=== PATIENT | female | born 1990 | race Two or more races ===

== ENCOUNTER 2021-02-17 01:58 | Inpatient (IN) | payer OTHER, SELFPAY ==
[2021-02-17] VITALS (55 sets, daily range): BP systolic 130–175; BP diastolic 73–113; PULSE 78–100; RESP 16; TEMP 35.8–36.8; BMI 35.9
[2021-02-17 03:03] LABS: Basophils % 0.5 %; Eosinophils # 0.1 10^3/uL (0.0-0.8); Eosinophils % 0.7 %; Hematocrit 33.2 % (37.0-47.0); Hemoglobin 9.9 g/dL (11.5-15.3); Lymphocytes # 1.8 10^3/uL (0.8-4.8); Lymphocytes % 24.7 %; Mean Corpuscular HGB Conc 29.8 g/dL (30.0-36.0); Mean Corpuscular Hemoglobin 21.8 pg (28.0-34.0); Monocytes # 0.7 10^3/uL (0.2-0.9); Monocytes % 9.6 %; Neutrophils # 4.73 10^3/uL (1.8-7.7); Neutrophils % 64.2 %; Nucleated Red Blood Cells % 0 %; Platelet Count 310 10^3/cmm (130-400); Red Blood Count 4.55 10^6/uL (4.1-5.3); Red Cell Distribution Width 15.9 % (12.1-15.1); White Blood Count 7.4 10^3/uL (4.0-10.0)
[2021-02-17] MEDS: miSOPROStol 100 mcg tablet 25 MCG VAGINAL ×3 (03:20→13:15)
[2021-02-17] MEDS: lactated ringers 1,000 ML 999 ML IV (11:57)
[2021-02-17] MEDS: hyDROXYzine 25 mg Capsule 50 MG PO (13:15)
[2021-02-17] MEDS: labetalol 5 mg/mL SDV 20mL 20 MG IVP (13:24)
[2021-02-17] MEDS: dextrose 5%-lactated ringers 1,000 ML 125 ML IV (18:27)
[2021-02-17] MEDS: labetalol 5 mg/mL SDV 20mL 40 MG IVP (18:28)
[2021-02-17 19:27] LABS: Basophils # 0.1 10^3/uL (0.0-0.1); Basophils % 0.5 %; Eosinophils % 0.2 %; Hematocrit 33.4 % (37.0-47.0); Lymphocytes # 1.5 10^3/uL (0.8-4.8); Lymphocytes % 15.9 %; Mean Corpuscular HGB Conc 29.9 g/dL (30.0-36.0); Mean Corpuscular Hemoglobin 21.6 pg (28.0-34.0); Mean Platelet Volume 11.3 fL (7.4-10.4); Monocytes # 0.7 10^3/uL (0.2-0.9); Monocytes % 7.6 %; Neutrophils # 7.01 10^3/uL (1.8-7.7); Neutrophils % 75.6 %; Nucleated Red Blood Cells % 0 %; Platelet Count 288 10^3/cmm (130-400); Red Blood Count 4.64 10^6/uL (4.1-5.3); Red Cell Distribution Width 15.9 % (12.1-15.1); White Blood Count 9.3 10^3/uL (4.0-10.0)
[2021-02-17 19:43] LABS: Protein Urine 3+ (Negative); Specific Gravity, Urine 1.015 (1.005-1.030); Urine Appearance SL Hazy (CLEAR); Urine Color Yellow (Yellow); pH Urine 6.5 (5-7)
[2021-02-17 19:44] LABS: Add Urine Culture? No; Add Urine Microscopic? YES; Bacteria Urine TRACE /hpf; Bilirubin Urine Neg (Negative); Blood Urine 2+ (Negative); Glucose Urine UA Norm (Normal); Ketones Urine Negative (Negative); Leukocyte Esterase Urine Negative (Negative); Nitrate Urine Negative (Negative); Squamous Epithelial Cell Urine 0-4 /hpf (0-5); Urobilinogen Urine Norm (Negative)
[2021-02-17 19:54] LABS: Alanine Aminotransferase < 5 U/L (0-33); Albumin Level 3.1 g/dL (3.5-5.2); Alkaline Phosphatase 207 IU/L (35-105); Anion Gap 16.3 (5-19); Aspartate Amino Transferase 16 U/L (0-32); Blood Urea Nitrogen 7 mg/dL (6-20); Calcium 8.3 mg/dL (8.5-10.5); Carbon Dioxide 22 mmol/L (22-29); Chloride 103 mmol/L (98-107); Globulin 2.9 g/dL (1.3-4.6); Glomerular Filtration Rate 187.4 mL/min (90-130); Glucose 76 mg/dL (65-115); Osmolality Calculated 281 mOsm/kg (285-295); Potassium 4.3 mmol/L (3.5-5.1); Sodium 137 mmol/L (136-145); Total Bilirubin 0.2 mg/dL (0.15-1.2); Uric Acid 4.7 mg/dL (2.4-5.7)
[2021-02-17 20:07] LABS: Urine Creatinine 122 mg/dL (28-217)
[2021-02-17 20:19] LABS: UPRO/UCREAT Ratio 3.45 mg/mg CR; Urine Protein Random 421 mg/dL
[2021-02-17] MEDS: oxytocin 30 UNIT/500 ML BAG IV (20:36)
--- NOTE | 2021-02-17 20:45 | PC.NURSE ---
This nurse at pt bedside educating about need for catheter. Pt had questions about how it was going to be placed, how long it would need to be in, why she needed it. Pt was visibly upset about getting the catheter placed, this nurse observed pt crying. Prior to placement all questions were addressed. Pt stated that she was ok with having it.
[2021-02-17] MEDS: magnesium sulfate premix 4 GM/100 ML PREMIX IV (20:55)
[2021-02-17] MEDS: magnesium sulfate premix 20 GM/500 ML BAG IV (21:15)
[2021-02-18] VITALS (65 sets, daily range): BP systolic 120–177; BP diastolic 70–104; PULSE 78–108; RESP 17; TEMP 35.3–35.6; O2SAT 99–100
[2021-02-18] MEDS: magnesium sulfate premix 20 GM/500 ML BAG IV ×2 (05:49→15:52)
--- NOTE | 2021-02-18 06:58 | P.HP_ITS ---
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 She has twin gestation with di-di twins. The twins are in vertex/vertex position. Her had been relatively unremarkable. Her care was somewhat inconsistent in part because she had a hard time obtaining insurance for her . Her due date is based on a first trimester ultrasound. The patient was noted to have a grade 3 placenta on twin B and a grade 2 placenta on twin A during an ultrasound performed the week prior to induction. Otherwise her has been relatively unremarkable. Her labs have been within normal limits. She passed her glucose screen. Her infectious disease panel was within normal limits. Present Details : 2 Para: 0 Labs Rubella: Immune RPR: Negative GBS: Negative Review of Systems General: Reports: 10 or more systems reviewed and unremarkable except in HPI and below Const: Reports: fatigue; Denies: fever(s) Eyes: Denies: change in vision Card: Denies: chest pain Musc: Reports: back pain Juan Manuel/Lymph: Denies: easy bruising Medications/Allergies Home Medications Medication Instructions Recorded Confirmed Last Taken Type 19 02/17/21 02/17/21 History iron mg 02/17/21 02/16/21 History ibuprofen 800 mg PO TID #45 tab 02/22/21 Unknown Rx oxycodone-acetaminophen 1 tab PO Q4H PRN #28 tab 02/22/21 Unknown Rx Allergies Allergy/AdvReac Type Severity Reaction Status Date / Time peanut Allergy ALGY-Anaphy Verified 02/17/21 02:40 laxis Penicillins Allergy ALGY-Rash Verified 02/17/21 02:40 Vitals/I&O/Wt Last Vital Signs Temp 96.4 F L 02/17/21 23:40 Pulse 96 02/18/21 06:41 Resp 16 02/17/21 06:55 BP 143/79 02/18/21 06:41 02/17/21 02/17/21 02/18/21 14:59 22:59 06:59 Intake Total 1000 / 1000 746.150 / 1746.150 988.232 / 2734.382 Output Total 60 / 60 665 / 725 Balance 1000 / 1000 686.150 / 1686.150 323.232 / 2009.382 Weight last 48 hrs Weight 203 lb Physical Exam Const: COMMON NORMALS: patient oriented x3 and alert HENMT: COMMON NORMALS: moist oral mucous membranes HEAD & SCALP: normal to inspection Chest: COMMONS NORMALS: normal inspection of the chest Resp: COMMON NORMALS: clear to auscultation bilaterally AUSCULTATION: clear to auscultation bilaterally Cardio: COMMON NORMALS: regular rate and regular rhythm RATE: regular rate RHYTHM: regular rhythm GI: INSPECTION: Yes normal to inspection and Yes other (Gravid) Extremity: COMMON NORMALS: normal to inspection GENERAL: Yes edema (Trace) Neuro: COMMON NORMALS: patient oriented x3, moves all extremities and no s ensory deficits noted SENSORIUM/ORIENTATION: Yes alert Psych: COMMON NORMALS: mental status grossly normal Skin: COMMON NORMALS: no rashes or lesions noted GENERAL SKIN EXAM: no rashes or lesions noted Urinary Catheter Management^: [place] Latex Free: Cath Placed During This Visit: yes Reason for Continuing Indwelling Catheter: Accurate Measurement of Urinary Output in Critically Ill Patients Urinary Catheter Date of Insertion: 02/17/21 Urinary Catheter Time of Insertion: 21:15 Data : 02/20/21 07:35 02/17/21 18:50 A&P Assessment and plan (1) Twin gestation in third trimester: After being admitted to the hospital, the patient began having some elevated blood pressures. Some of the blood pressures were over 160 systolic. As result we elected to do a preeclamptic panel on her and treat her with labetalol. The preeclamptic panel demonstrated a protein creatinine ratio of 3. She was started on magnesium per protocol. She has been induced with Cytotec 25 mcg x 3, and was later placed on Pitocin overnight. Despite her induction lasting for over 30 hours the cervix is still closed. We will try Cytotec again this morning. If we see no results, I will likely perform a this afternoon. Status: Resolved (2) Preeclampsia: Status: Resolved Attestations Medical Necessity Statement*: The patient will likely require a 3 to 4-day hospital stay due to preeclampsia treatment and post care. Coding Level of Care Code Acute Cadd Operator for [facility] Fwd Exam Comprehensive Diagnoses Twin gestation in third trimester O30.003 Preeclampsia O14.90
[2021-02-18] MEDS: miSOPROStol 100 mcg tablet 25 MCG VAGINAL (07:14)
--- NOTE | 2021-02-18 11:27 | ANES.PREANE2 ---
Pre-Anesthetic Assessment Pre-Anesthetic Assessment: Height/Weight: Height 1.6 m Weight 92.079 kg Temp Pulse Resp BP 96.4 F L 97 17 132/79 02/17/21 23:40 02/18/21 10:41 02/18/21 07:24 02/18/21 10:41 Was Beta [place] taken within 24 hours: N/A Was Clonidine taken within 24 hours: N/A Social: Social History: No alcohol and No tobacco Exam: Pre-Anes Outpt Exam: alert, oriented x 3, clear to auscultation bilaterally and regular rate & rhythm Airway: Submandibular: WNL Cervical ROM: WNL MP: 2 Dentition: Full History/ROS: No significant history except as noted CV/HEM: Comments: Pre E, twins Anesthetic Plan: ASA status: 2 Other: SAB Risk of > 500 ml blood loss (7ml/kg in children): Yes, adequate IV access and fluids planned Meds/Allergies Current Medications: Current Medications Generic Name Dose Route Start Last Admin Trade Name Freq PRN Reason Stop Dose Admin Hydroxyzine Pamoat e 50 mg 02/17/21 02:19 02/17/21 13:15 Hydroxyzine 25 M g Capsule PO 50 mg QID PRN Administration sleep, agitation or itching Dextrose/Lactated Ringer's 1,000 mls @ 125 m ls/hr 02/17/21 02:30 02/18/21 06:01 Dextrose 5%-Lact ated Ringers IV 55 mls/hr .Q8H NATI Infusion Lactated Ringer's 1,000 mls @ 999 m ls/hr 02/17/21 02:19 02/17/21 12:58 Lactated Ringers IV Infused .Q1H1M PRN Infusion Per L&D Rescitati on Protocol Oxytocin 30 unit in 500 ml s @ 1 mls/hr 02/17/21 19:15 02/18/21 06:35 Pitocin IV 0 milliunit/min .Q24H NATI 0 mls/hr Titration Protocol 1 MILLIUNIT/MIN Magnesium Sulfate 20 gm in 500 mls @ 50 mls/hr 02/17/21 20:30 02/18/21 05:49 Magnesium Sulfat e Premix IV 50 mls/hr .Q10H NATI Administration Labetalol HCl 20 mg 02/17/21 12:40 02/17/21 13:24 Labetalol 5 Mg/M l Sdv 20ml IVP 20 mg PRN PRN Administration HYPERTENSION Protocol Labetalol HCl 40 mg 02/17/21 12:40 02/17/21 18:28 Labetalol 5 Mg/M l Sdv 20ml IVP 40 mg PRN PRN Administration HYPERTENSION Protocol PFSH Anesthesia Female Reproductive History: : 2 Data Anesthesia CBC & Chem 7: 02/17/21 18:50 02/17/21 18:50 Other Labs: Laboratory Results - last 48 hr 02/17/21 02/17/21 02/17/21 02:45 18:50 18:50 WBC 7.4 9.3 RBC 4.55 4.64 Hgb 9.9 L 10.0 L Hct 33.2 L 33.4 L MCV 73.0 L 72.0 L MCH 21.8 L 21.6 L MCHC 29.8 L 29.9 L RDW 15.9 H 15.9 H Plt Count 310 288 MPV 11.0 H 11.3 H Neut % (Auto) 64.2 75.6 Lymph % (Auto) 24.7 15.9 [place] % (Auto) 9.6 7.6 Eos % (Auto) 0.7 0.2 Baso % (Auto) 0.5 0.5 Neut # (Auto) 4.73 7.01 Lymph # (Auto) 1.8 1.5 [place] # (Auto) 0.7 0.7 Eos # (Auto) 0.1 0.0 Baso # (Auto) 0.0 0.1 Nucleated RBC % (auto) 0 0 Nucleated RBCs # 0.0 0.0 Sodium 137 Potassium 4.3 Chloride 103 Carbon Dioxide 22 Anion Gap 16.3 BUN 7 Creatinine 0.4 L GFR Calculation 187.4 H Glucose 76 Calculated Osmolality 281 L Uric Acid 4.7 Calcium 8.3 L Total Bilirubin 0.2 AST 16 ALT < 5 Alkaline Phosphatase 207 H Total Protein 6.0 L Albumin 3.1 L Globulin 2.9 Urine Color Urine Appearance Urine pH Ur Specific [place] Urine Protein Urine Glucose (UA) Urine Ketones Urine Blood Urine Nitrate Urine Bilirubin Urine Urobilinogen Ur Leukocyte Esterase Urine RBC Urine WBC Ur Squamous Epith Cells Amorphous Sediment Urine Bacteria U Random Total Protein Urine Creatinine Protein/Creatinin Ratio 07/01/21 07/01/21 19:00 19:00 WBC RBC Hgb Hct MCV MCH MCHC RDW Plt Count MPV Neut % (Auto) Lymph % (Auto) [place] % (Auto) Eos % (Auto) Baso % (Auto) Neut # (Auto) Lymph # (Auto) [place] # (Auto) Eos # (Auto) Baso # (Auto) Nucleated RBC % (auto) Nucleated RBCs # Sodium Potassium Chloride Carbon Dioxide Anion Gap BUN Creatinine GFR Calculation Glucose Calculated Osmolality Uric Acid Calcium Total Bilirubin AST ALT Alkaline Phosphatase Total Protein Albumin Globulin Urine Color Yellow Urine Appearance Sl hazy Urine pH 6.5 Ur Specific [place] 1.015 Urine Protein 3+ H Urine Glucose (UA) Norm Urine Ketones Negative Urine Blood 2+ H Urine Nitrate Negative Urine Bilirubin Neg Urine Urobilinogen Norm Ur Leukocyte Esterase Negative Urine RBC 10-15 H Urine WBC None Ur Squamous Epith Cells 0-4 H Amorphous Sediment Not Reportable Urine Bacteria Trace U Random Total Protein 421 Urine Creatinine 122 Protein/Creatinin Ratio 3.45 Cardiac Studies: No Data to Display
[2021-02-18] MEDS: dextrose 5%-lactated ringers 1,000 ML 55 ML IV (12:20)
[2021-02-18] MEDS: oxytocin 30 UNIT/500 ML BAG IV (13:55)
--- NOTE | 2021-02-18 17:15 | ANES.PROC ---
Anesthesia Procedures Procedure/Date: 02/18/21 Epidural: Time Out Performed: Yes Consents Signed: Procedure Consent Consent: requested by attending/covering physician, from patient, risks and benefits reviewed and patient agrees to proceed Lumbar Level: L3-L4 Epidural position: sitting Epidural procedure: sterile prep of area, 1% lidocaine to numb the area, 18 g needle, neg for paresthesia, test dose given, 1.5% xylocaine 1:200k epi, placed PCEA, no systemic response, sterile dressing applied and 0.2% Ropiavacaine @ mls/hr (13) Additional Comments: DELMY at 6cm, cath at 11cm,, bolused 5mls 2% lido.
[2021-02-19] VITALS (78 sets, daily range): BP systolic 96–160; BP diastolic 54–104; PULSE 79–106; RESP 14–17; TEMP 35.5–37.2; O2SAT 92–100
[2021-02-19] MEDS: magnesium sulfate premix 20 GM/500 ML BAG IV ×3 (02:06→23:27)
[2021-02-19] MEDS: dextrose 5%-lactated ringers 1,000 ML 75 ML IV (02:07)
[2021-02-19] MEDS: lactated ringers 1,000 ML 999 ML IV (16:11)
--- NOTE | 2021-02-19 16:38 | P.ANESUD_ITS ---
Pre-Anesthetic Update Pre-Anesthetic Assessment: Date of Surgery/Procedure: 02/19/21 Any changes to Pre-Anesthetic Assessment?: No Labs Last 48hrs: Laboratory Results - last 48 hr 02/17/21 02/17/21 02/17/21 18:50 18:50 19:00 WBC 9.3 RBC 4.64 Hgb 10.0 L Hct 33.4 L MCV 72.0 L MCH 21.6 L MCHC 29.9 L RDW 15.9 H Plt Count 288 MPV 11.3 H Neut % (Auto) 75.6 Lymph % (Auto) 15.9 [place] % (Auto) 7.6 Eos % (Auto) 0.2 Baso % (Auto) 0.5 Neut # (Auto) 7.01 Lymph # (Auto) 1.5 [place] # (Auto) 0.7 Eos # (Auto) 0.0 Baso # (Auto) 0.1 Nucleated RBC % (a uto) 0 Nucleated RBCs # 0.0 Sodium 137 Potassium 4.3 Chloride 103 Carbon Dioxide 22 Anion Gap 16.3 BUN 7 Creatinine 0.4 L GFR Calculation 187.4 H Glucose 76 Calculated Osmolal ity 281 L Uric Acid 4.7 Calcium 8.3 L Total Bilirubin 0.2 AST 16 ALT < 5 Alkaline Phosphata se 207 H Total Protein 6.0 L Albumin 3.1 L Globulin 2.9 Urine Color Yellow Urine Appearance Sl hazy Urine pH 6.5 Ur Specific Gravit y 1.015 Urine Protein 3+ H Urine Glucose (UA) Norm Urine Ketones Negative Urine Blood 2+ H Urine Nitrate Negative Urine Bilirubin Neg Urine Urobilinogen Norm Ur Leukocyte Tamera ase Negative Urine RBC 10-15 H Urine WBC None Ur Squamous Epith Cells 0-4 H Amorphous Sediment Not Reportable Urine Bacteria Trace U Random Total Pro tein Urine Creatinine Protein/Creatinin Ratio 02/17/21 19:00 WBC RBC Hgb Hct MCV MCH MCHC RDW Plt Count MPV Neut % (Auto) Lymph % (Auto) [place] % (Auto) Eos % (Auto) Baso % (Auto) Neut # (Auto) Lymph # (Auto) [place] # (Auto) Eos # (Auto) Baso # (Auto) Nucleated RBC % (a uto) Nucleated RBCs # Sodium Potassium Chloride Carbon Dioxide Anion Gap BUN Creatinine GFR Calculation Glucose Calculated Osmolal ity Uric Acid Calcium Total Bilirubin AST ALT Alkaline Phosphata se Total Protein Albumin Globulin Urine Color Urine Appearance Urine pH Ur Specific Gravit y Urine Protein Urine Glucose (UA) Urine Ketones Urine Blood Urine Nitrate Urine Bilirubin Urine Urobilinogen Ur Leukocyte Tamera ase Urine RBC Urine WBC Ur Squamous Epith Cells Amorphous Sediment Urine Bacteria U Random Total Pro tein 421 Urine Creatinine 122 Protein/Creatinin Ratio 3.45 Vitals: Temperature 96.1 F L 02/19/21 15:53 Pulse Rate 93 02/19/21 16:21 Respiratory Rate 17 02/19/21 14:00 Respiratory Effort Non-Labored 02/17/21 02:30 Respiratory Depth Normal 02/17/21 02:30 Respiratory Patter n 02/17/21 02:30 Blood Pressure 131/89 02/19/21 16:21 Pulse Oximetry 100 02/18/21 16:48 Oxygen Delivery Me thod 02/19/21 14:00 Exam: Pre-Anes Outpt Exam: alert, oriented x 3, clear to auscultation bilaterally and regular rate & rhythm Other Pertinent Information: Other Pertinent Information: FTP with labor, plan C/S under epidural anesthesia. Cardiac Studies: No Data to Display
--- NOTE | 2021-02-19 16:41 | P.PN_ITS ---
IT PROGRAM AUDITOR Subjective Subjective: Interval history: She has been making very slow progress. I have notified her that if she does not make more progress towards complete we will need to proceed with section because of the time the membranes are ruptured, as well as the lower probability of a successful vaginal delivery the longer she goes with only minimal cervical change. Labor: Station: -2 Amniotic Membrane Status: Ruptured Monitor Mode: External Contraction Pattern: Regular Status: Category I Vitals/I&O/Wt Last Vital Signs Temp 96.1 F L 02/19/21 15:53 Pulse 93 02/19/21 16:21 Resp 17 02/19/21 14:00 BP 131/89 02/19/21 16:21 Pulse Ox 100 02/18/21 16:48 02/19/21 02/19/21 02/19/21 06:59 14:59 22:59 Intake Total 1358.083 / 2260.132 600 / 600 100 / 700 Output Total 1095 / 3470 225 / 225 Balance 263.083 / -1209.868 375 / 375 100 / 475 Physical Exam Narrative: EXAM NARRATIVE: The patient is alert and oriented. Her lungs are clear to auscultation bilaterally. Her heart has a regular rate and rhythm. She does have 1+ edema in her lower extremities. She has no swelling of her hands or face. She appears to be comfortable and is tolerating the magnesium well. Urinary Catheter Management^: [place] Latex Free: Cath Placed During This Visit: yes Reason for Continuing Indwelling Catheter: Required Immobilization for Trauma or Surgery or Anesthesia Urinary Catheter Date of Insertion: 02/17/21 Urinary Catheter Time of Insertion: 21:15 Data : 02/20/21 07:35 02/17/21 18:50 Attestations Medical Necessity Statement*: The patient is still laboring. I anticipate she will have at least another 2-3 night stay in the hospital because of her preeclampsia and the fact that she has not yet delivered her babies. Coding Level of Care Code Acute Manager Internal for [facility]
[2021-02-19] MEDS: famotidine 20 mg/2 mL INJ IVP (16:55)
[2021-02-19] MEDS: metoclopramide 5 mg/mL SDV 2 mL 10 MG IVP (16:55)
[2021-02-19] MEDS: citric acid-sodium citrate 30 mL UDC PO (16:55)
[2021-02-19] MEDS: clindamycin 900 MG/50 ML PREMIX 100 MG IV (16:55)
[2021-02-19] MEDS: gentamicin inj 140 MG in sodium chloride 0.9% (100 ml) 100 ML 103.5 MG IV (17:30)
[2021-02-19] MEDS: oxytocin 30 UNIT/500 ML BAG 60 UNIT IV (18:00)
--- NOTE | 2021-02-19 18:09 | PM.OP ---
Operative Report Date of procedure: February 19, 2021 Pre-op Diagnosis: Twin gestation, preeclampsia, failure to progress Post-op diagnosis: same Procedure Done: Lower transverse section Specimens removed/disposition: 1. Twin A with a weight of 5 lbs 7 ounces Apgars 1, 6, 9 2. Twin B with a weight of 5 pounds 0 ounces Apgars 9, 9 3. Placenta of twin A with three-vessel cord 4. Placenta of twin B with three-vessel cord Pathology: none sent Surgeon: Rolando White Anesthesia: Epidural Estimated blood loss (mL): 1,000 Complications: None Condition: stable Disposition: floor Brief History: The patient is a 30-year-old 2 at 38 weeks estimated gestational age who presented to the hospital for induction due to twin gestation. After induction she was noted to have elevated blood pressures. When a preeclamptic panel was done she was found have a protein creatinine ratio of 3. She was placed on magnesium. She was given Cytotec 25 mcg per vagina x4 she is also placed on Pitocin and amniotomy was performed about 25 hours prior to delivery. She progressed very slowly from 0 to 6 cm. Her cervix became more thick and she progressed from a 5 to a 6 over a period of about 8 hours. As result the decision was made to proceed with a due to the failure to progress, and the prolonged rupture of membranes. The risks of a including the risks of bleeding, infection, and damage to intra-abdominal organs were explained to the patient and her Procedure: The patient was brought back to the operating room where she was prepped and draped in usual sterile fashion. Anesthesia was found to be adequate. A lower transverse skin incision was then made with a #10 blade. I then dissected down to the underlying subcutaneous tissue until arriving at the prerectal fascia. The fascia was then nicked with the scalpel bilaterally. The fascial incisions were then carried laterally with Monk scissors. Attention was then turned to the superior aspect of the incision which was grasped with kochers and tented up away from the underlying rectus abdominis muscles. The muscles were then dissected away from the fascia manually, and later with Monk scissors. Attention was then turned to the inferior aspect of the incision, and the fascia was dissected away from the underlying muscle in similar fashion. The rectus abdominis muscles were then spread manually. The peritoneum was entered manually. Excellent visualization of the uterus was noted. A lower transverse uterine incision was then made with a #10 blade. Upon arriving at the intrauterine cavity, the uterine incision was then extended manually. The infant was noted to be in vertex position. The baby was delivered without difficulty. After delivery the cord was cut and clamped and the baby was handed to Dr. Aguilar and the nurses. There was no meconium. There was no nuchal cord. The second membrane was then ruptured. No meconium was noted. The baby was noted to be in vertex position. The baby was easily delivered, the cord was cut and clamped, and the baby was handed to the waiting nurses. Both placentas were removed intact. The uterus was externalized. The intrauterine cavity was cleansed of any remaining debris. The uterine incision was reapproximated in 2 layers. The first layer was performed with 0 Vicryl in a running locked stitch. The second layer was an imbricating stitch also using 0 Vicryl. The uterus was replaced into the abdomen. The peritoneum was then irrigated with warm saline. I reexamined the uterine incision and found it to be hemostatic. The rectus abdominis muscles were then reapproximated using 0 Vicryl in a running stitch. The fascia was then reapproximated using 0 Vicryl in running stitch. The subcutaneous tissue was reapproximated using 0 Vicryl in a running stitch. The skin was reapproximated using kiet. A sterile dressing was placed. All counts were correct x2. Both the mother and the babies were in stable condition. Associated Problem List Diagnoses (1) Preeclampsia: (2) Twin gestation in third trimester: (3) Failure to progress in labor: (4) Prolonged rupture of membranes, greater than 24 hours, delivered:
--- NOTE | 2021-02-19 18:13 | ANE.PACU2 ---
Inpatient post-anesthesia follow up: Airway intact: Yes Vital signs: Temperature 96.1 F Pulse Rate 102 Respiratory Rate 17 Blood Pressure 160/94 Pulse Oximetry 100 Oxygen Delivery Me thod Room Air Oxygen Flow Rate Fraction of Inspir ed Oxygen Hydration adequate: Yes Nausea and vomiting: No Mental status: Baseline
--- NOTE | 2021-02-19 18:14 | PM.PACU ---
PACU note PACU note: patient resting comfortably VSS. uterus firm. Post-Anesthesia Exam: awake and vital signs stable Disposition: back to floor
--- NOTE | 2021-02-19 18:50 | PC.NURSE ---
this conventional underwriter wheeled pt on bed from OR to pt room
[2021-02-19] MEDS: oxyCODONE-APAP 5-325 mg Tablet PO (20:48)
[2021-02-20] VITALS (15 sets, daily range): BP systolic 121–149; BP diastolic 75–93; PULSE 72–105; RESP 14–18; TEMP 36.9–37.7; O2SAT 94–98
[2021-02-20] MEDS: oxyCODONE-APAP 5-325 mg Tablet PO ×3 (01:01→16:57)
[2021-02-20 01:22] LABS: Magnesium Level (OB Only) 7.2 mg/dL (5.0-7.5)
--- NOTE | 2021-02-20 06:31 | P.PN_ITS ---
SENIOR SCRUM MASTER Subjective Subjective: Interval history: The patient is doing well today. She is still on magnesium. Her pain is well controlled. Her bleeding has been minimal. Her blood pressures have been stable. She is not showing any other signs or symptoms of preeclampsia Vitals/I&O/Wt Last Vital Signs Temp 99.0 F 02/20/21 03:36 Pulse 98 02/20/21 03:36 Resp 16 02/20/21 01:01 BP 149/93 02/20/21 03:36 Pulse Ox 98 02/20/21 03:36 02/19/21 02/19/21 02/20/21 14:59 22:59 06:59 Intake Total 600 / 600 2310 / 2910 500 / 3410 Output Total 925 / 925 2035 / 2960 200 / 3160 Balance -325 / -325 275 / -50 300 / 250 Physical Exam Narrative: EXAM NARRATIVE: She is in no acute distress Lungs are clear auscultation bilaterally Her heart has a regular rate and rhythm Her fundus is below the umbilicus and firm Her dressing is clean, dry and intact Her extremities have trace edema Urinary Catheter Management^: [place] Latex Free: Cath Placed During This Visit: yes Reason for Continuing Indwelling Catheter: Accurate Measurement of Urinary Output in Critically Ill Patients Urinary Catheter Date of Insertion: 02/17/21 Urinary Catheter Time of Insertion: 21:15 Data : 02/17/21 18:50 02/17/21 18:50 A&P Assessment and plan (1) Preeclampsia: Continue magnesium for 24 hours . We will advance her diet to clears. Status: Acute (2) Twin gestation in third trimester: Status: Acute (3) Status post : Status: Acute Attestations Medical Necessity Statement*: The patient will require 1-2 more midnight stay in the hospital for post care, and to continue to treat and monitor her preeclampsia. Coding Level of Care Code Acute Automation Engineering Manager for [facility] Diagnoses Preeclampsia O14.90 Twin gestation in third trimester O30.003 Status post Z98.891
[2021-02-20 07:49] LABS: Hematocrit 26.9 % (37.0-47.0); Hemoglobin 8.1 g/dL (11.5-15.3); Mean Corpuscular HGB Conc 30.1 g/dL (30.0-36.0); Mean Corpuscular Hemoglobin 21.5 pg (28.0-34.0); Mean Corpuscular Volume 71.5 fL (81-99); Mean Platelet Volume 10.4 fL (7.4-10.4); Platelet Count 243 10^3/cmm (130-400); Red Blood Count 3.76 10^6/uL (4.1-5.3); Red Cell Distribution Width 16.4 % (12.1-15.1); White Blood Count 13.9 10^3/uL (4.0-10.0)
[2021-02-20] MEDS: dextrose 5%-lactated ringers 1,000 ML 75 ML IV (08:24)
--- NOTE | 2021-02-20 08:54 | PC.NURSE ---
Call to Dr. White to report hemagram results. Reported WBC and HGB results. Also reported the result from the last magnesium level at 0030 of 7.2. Reported that there was not an order for q6 hour mag levels. Dr. White reported he was ok with the mag level, the pt is doing well and not showing any clinical signs of mag toxicity, no further mag levels were needed at this time. Dr. White reported he was ok with WBC and HGB and we would continue to monitor VS for any signs of infection or anemia.
[2021-02-20] MEDS: prenatal vitamin Capsule 1 CAP PO (09:05)
[2021-02-20] MEDS: ferrous sulfate EC 325 mg Tablet PO ×2 (09:05→18:29)
[2021-02-20] MEDS: magnesium sulfate premix 20 GM/500 ML BAG IV (10:13)
[2021-02-20] MEDS: ibuprofen 800 mg tablet PO (18:29)
--- NOTE | 2021-02-20 18:45 | PC.NURSE ---
This nurse and Claudio Rosenberg RN assisted pt up to bed. Pt moved slow and complained of pain, but was able to slowly get up to the chair. Pt reported slight light headedness.
--- NOTE | 2021-02-21 07:10 | PM.OBGYPN ---
TELECOMMUNICATOR SUPERVISOR Subjective Subjective: Interval history: The patient is now off her magnesium. She continues to do well. She was a little bit weak yesterday in general, but has been getting up and doing more. She has had no preeclamptic symptoms. Vitals/I&O/Wt Last Vital Signs Temp 98.8 F 02/20/21 22:24 Pulse 89 02/20/21 22:24 Resp 16 02/20/21 22:24 BP 124/85 02/20/21 22:24 Pulse Ox 97 02/20/21 17:00 02/20/21 02/21/21 02/21/21 22:59 06:59 14:59 Intake Total 1009.167 / 1509.167 Output Total 1100 / 2500 200 / 2700 Balance -90.833 / -990.833 -200 / -1190.833 Physical Exam Narrative: EXAM NARRATIVE: She is in no acute distress Lungs are clear auscultation bilaterally Her heart has a regular rate and rhythm Her fundus is below the umbilicus and firm Her dressing is clean, dry and intact Her extremities have trace edema Urinary Catheter Management^: [place] Latex Free: Cath Placed During This Visit: yes, but has since been removed by the nurse Reason for Continuing Indwelling Catheter: Decision to DC Catheter Urinary Catheter Date of Insertion: 02/17/21 Urinary Catheter Time of Insertion: 21:15 Date Urinary Catheter Removed: 02/20/21 Time Urinary Catheter Discontinued: 23:35 Data : 02/20/21 07:35 02/17/21 18:50 A&P Assessment and plan (1) Status post : The patient is going to work to more active today. She is going to shower. I notified her that the nurses are going to be pushing her hard to do things even though she will be uncomfortable. Status: Resolved (2) Twin gestation in third trimester: Status: Resolved Attestations Medical Necessity Statement*: I anticipate the patient will be discharged home tomorrow if all goes well. Coding Level of Care Code Acute Administrative And Program Specialist for Elvis [facility] Diagnoses Status post Z98.891 Twin gestation in third trimester O30.003
[2021-02-21 08:00] VITALS: BP 132/91; PULSE 105; RESP 15; TEMP 37.6; O2SAT 98
[2021-02-21] MEDS: prenatal vitamin Capsule 1 CAP PO (08:50)
[2021-02-21] MEDS: ibuprofen 800 mg tablet PO ×3 (08:50→20:39)
[2021-02-21] MEDS: ferrous sulfate EC 325 mg Tablet PO ×2 (08:50→17:44)
[2021-02-21 10:14] VITALS: BP 118/78; PULSE 106; RESP 16; TEMP 36.9; O2SAT 96
[2021-02-21 16:06] VITALS: BP 129/85; PULSE 96; RESP 15; TEMP 37; O2SAT 99
[2021-02-21 21:58] VITALS: BP 143/86; PULSE 96; RESP 15; TEMP 36.9; O2SAT 99
[2021-02-22] MEDS: acetaminophen 325 mg Tablet 650 MG PO (05:31)
[2021-02-22 05:42] VITALS: BP 126/83; PULSE 103; RESP 15; TEMP 36.9; O2SAT 99
--- NOTE | 2021-02-22 06:14 | PM.OBGYDC ---
Discharge Providers PASSPORT SUPPORT MANAGER Date of Admission: 02/19/21 16:20 Date of Discharge: 02/25/21 Attending Provider at Admission: Rolando White MD Attending Provider at Discharge: Rolando White MD Primary Care Provider: Rolando White Diagnoses at Discharge Discharge Diagnosis (1) Preeclampsia: Status: Resolved (2) Twin gestation in third trimester: Status: Resolved (3) Failure to progress in labor: Status: Resolved (4) Prolonged rupture of membranes, greater than 24 hours, delivered: Status: Resolved Reason for Visit Reason for Visit: IOL Brief History: The patient was a 38-week female with twin gestation with grade 3 placenta's. Hospital Course Hospital Course The patient presented to the hospital for induction due to being 38 weeks with twin gestation and grade 3 placentas. Her induction was initiated with Cytotec 25 mcg x 3. Pitocin was then added. She was noted to have elevated blood pressures that were treated according to the gestational hypertension protocol. And as a part of her preeclamptic panel she was found to have an elevated protein creatinine ratio. As result she was placed on magnesium. Later an amniotomy was performed. Her labor was once again augmented with Pitocin. She progressed to 7 cm. She had made no significant progress for over 6 hours, and she was over 24 hours post rupture of membranes. The decision was made to proceed with a lower transverse section. Her was unremarkable. Twin A did require initial resuscitation, but later appeared to be doing fine. Her postoperative course was also relatively unremarkable. Her diet was advanced to regular diet. She passed flatus. Her urine output was appropriate. Magnesium was stopped at 24 hours post delivery. She had no significant symptoms that were consistent with preeclampsia other than swelling in her feet. Her blood pressures are improved post delivery. Her bleeding was within normal limits. She bottle-fed her infants. Physical Exam Narrative: EXAM NARRATIVE: She is in no acute distress Lungs are clear auscultation bilaterally Her heart has a regular rate and rhythm Her fundus is below the umbilicus and firm Her dressing is clean, dry and intact Her extremities have trace edema Urinary Catheter Management^: Mensah Latex Free: Cath Placed During This Visit: yes, but has since been removed by the nurse Reason for Continuing Indwelling Catheter: Decision to DC Catheter Urinary Catheter Date of Insertion: 02/17/21 Urinary Catheter Time of Insertion: 21:15 Date Urinary Catheter Removed: 02/20/21 Time Urinary Catheter Discontinued: 23:35 Discharge Data Data Completed and Pending: On admission the patient's hemoglobin was 9.9 with a platelet count of 310 and white blood count of 7.4 prior to discharge her white blood count was 13.9 with a hemoglobin of 8.1 and a platelet count of 243. Her metabolic panel was noted for a calculated osmolality of 281 a calcium of 8.3 her urine was noted to have a 3+ protein 2+ blood 0-4 squamous epithelial cells. Her protein creatinine ratio was 3.45 Vitals: Last Vital Signs Temp 98.5 F 02/22/21 05:42 Pulse 103 H 02/22/21 05:42 Resp 15 02/22/21 05:42 BP 126/83 02/22/21 05:42 Pulse Ox 99 02/22/21 05:42 Discharge Plan Discharge Patient Disposition: Home Condition: Stable Prescriptions: New ibuprofen 800 mg Tablet 800 mg PO TID Qty: 45 RF: 0 oxycodone-acetaminophen 5-325 mg Tablet 1 tab PO Q4H PRN (Reason: Moderate To Severe Pain) Qty: 28 RF: 0 Continued iron 325 mg (65 mg iron) tablet RF: 0 19 RF: 0 Discharge Orders: Discharge Order (Routine); Ordered 02/22/21 Ordered By: Rolando White Referrals: Rolando White MD [Physician] - 02/25/21 (Your incision check and babies checks are all scheduled for 3:00 on 02/25/21. ) Discharge Diet: Usual diet Discharge Activity: Limit activity as instructed Patient Instructions: Vitamins (By mouth), Depression (GEN), Pre-eclampsia and Eclampsia (DC), Bleeding (DC), OB - Christopher/Josh, OB Discharge Report, OB Food/Drug Interaction Guide, Opioid Safety, OB Proud Parent Packet, Abnormal Bleeding, Depression Discharge Attestations PASSPORT SUPPORT MANAGER Time Spent in Discharge Care*: greater than 30 min Coding Level of Care Code Acute License And Permit Specialist for Chg Fwd Diagnoses Preeclampsia O14.90 Twin gestation in third trimester O30.003 Failure to progress in labor O62.2 Prolonged rupture of membranes, greater than 24 hours, delivered O42.10
[2021-02-22] MEDS: prenatal vitamin Capsule 1 CAP PO (08:59)
[2021-02-22] MEDS: ibuprofen 800 mg tablet PO (09:00)
[2021-02-22] MEDS: ferrous sulfate EC 325 mg Tablet PO (09:00)
[2021-02-22 09:11] VITALS: BP 140/90; PULSE 115; RESP 18; TEMP 36.7; O2SAT 100
[2021-02-22 11:21] VITALS: BP 140/90; PULSE 115; RESP 18; TEMP 36.7; O2SAT 100
== END 2021-02-22 10:55 | disposition home or self-care (01) | DRG 788 ==
PROVIDERS: Admitting Provider Family Medicine; Visit Provider Family Medicine
PROC: (CPT 59514; principal; 2021-02-19 17:05)
DX: O14.94 Unspecified pre-eclampsia, complicating childbirth (principal); O30.043 Twin pregnancy, dichorionic/diamniotic, third trimester; O62.9 Abnormality of forces of labor, unspecified; O75.5 Delayed delivery after artificial rupture of membranes; Z3A.38 38 weeks gestation of pregnancy; Z37.2 Twins, both liveborn
CPT/HCPCS: 12345; 36415; 51702; 59025; 80053; 81001; 82570; 83735; 83986; 84156; 84550; 85025; 85027; 96374; 96375; G0378; G0379; J1580; J2765; J2795; J3010; J3475; J3490

== ENCOUNTER 2022-07-07 05:05 | Inpatient (IN) | payer BC, SELFPAY ==
--- NOTE | 2022-07-04 09:17 | ANES.PREANE2 ---
Pre-Anesthetic Assessment Height/Weight: Height 1.6 m Preop Diagnosis: Twin gestation, preeclampsia, failure to progress Operation Date: 07/07/22 07:00 Proposed Procedures p Section Repeat 63346,Z35.82Z98.891(Not Applicable) - Rolando White MD Familial anesthetic complications: None Social No alcohol and No tobacco Exam alert, oriented x 3, clear to auscultation bilaterally and regular rate & rhythm Airway Dentition: full Anesthetic Plan ASA status: 2 Anesthesia: Regional (specify below) (spinal) Risk of > 500 ml blood loss (7ml/kg in children): No Other Pertinent Information Preeclampsia with prior (twins gestation) Medications/Allergies Home Medications Medication Instructions Recorded Confirmed Last Taken Type 19 02/17/21 02/17/21 History ferrous sulfate 325 mg (65 mg mg 02/17/21 02/16/21 History iron) tablet (iron) ibuprofen 800 mg tablet 800 mg PO TID #45 tabs 02/22/21 Unknown Rx oxycodone-acetaminophen 5 mg-325 1 tab PO Q4H PRN Moderate To 02/22/21 Unknown Rx mg tablet Severe Pain #28 tabs Allergies Allergy/AdvReac Type Severity Reaction Status Date / Time peanut Allergy ALGY-Anaphy Verified 02/17/21 02:40 laxis Penicillins Allergy ALGY-Rash Verified 02/17/21 02:40 Data Anesthesia Cardiac Studies: No Data to Display
[2022-07-07] VITALS (82 sets, daily range): BP systolic 103–131; BP diastolic 55–79; PULSE 71–105; RESP 16–18; TEMP 36–36.8; O2SAT 91–100; BMI 35.0
[2022-07-07] MEDS: lactated ringers 1,000 ML 999 ML IV (05:56)
[2022-07-07 06:03] LABS: Basophils % 0.5 %; Eosinophils # 0.1 10^3/uL (0.0-0.8); Eosinophils % 1.2 %; Hematocrit 28.5 % (37.0-47.0); Hemoglobin 8.2 g/dL (11.5-15.3); Lymphocytes % 26.7 %; Mean Corpuscular HGB Conc 28.8 g/dL (30.0-36.0); Mean Platelet Volume 10.1 fL (7.4-10.4); Monocytes # 0.6 10^3/uL (0.2-0.9); Monocytes % 8.2 %; Neutrophils # 4.74 10^3/uL (1.8-7.7); Neutrophils % 62.7 %; Nucleated Red Blood Cells % 0 %; Platelet Count 353 10^3/cmm (130-400); Red Blood Count 4.32 10^6/uL (4.1-5.3); Red Cell Distribution Width 18.1 % (12.1-15.1); White Blood Count 7.6 10^3/uL (4.0-10.0)
--- NOTE | 2022-07-07 06:25 | P.ANESUD_ITS ---
Pre-Anesthetic Update Pre-Anesthetic Assessment: Date of Surgery/Procedure: 07/07/22 Preop Carlyn gnosis: Repeat Proposed Procedure: Operation Date: 07/07/22 07:00 Proposed Procedures p Section Repeat 23943,Z35.82Z98.891(Not Applicable) - Rolando White MD Any changes to Pre-Anesthetic Assessment?: No Last Intake: Intake Last Liquid Date 07/06/22 Last Liquid Time 23:00 Last Solid Date 07/06/22 Last Solid Time 23:00 Labs Last 48hrs: Short CBC 07/07/22 Range/Units 05:50 WBC 7.6 (4.0-10.0) 10^3/ uL Hgb 8.2 L (11.5-15.3) g/dL Hct 28.5 L (37.0-47.0) % MCV 66.0 L (81-99) fl Plt Count 353 (130-400) 10^3/c mm Neut % (Auto) 62.7 % Neut # (Auto) 4.74 (1.8-7.7) 10^3/u L Vitals: Pulse Rate 105 H 07/07/22 06:21 Pulse Rhythm 07/07/22 05:10 Pulse Strength 3+ Normal 07/07/22 05:10 Respiratory Effort Non-Labored 07/07/22 05:10 Respiratory Depth Normal 07/07/22 05:10 Respiratory Patter n 07/07/22 05:10 Blood Pressure 125/73 07/07/22 06:21 Oxygen Delivery Me thod 07/07/22 05:10 Exam: Pre-Anes Outpt Exam: alert, oriented x 3, clear to auscultation bilaterally and regular rate & rhythm Cardiac Studies: No Data to Display
[2022-07-07] MEDS: metoclopramide 5 mg/mL SDV 2 mL 10 MG IVP (06:28)
[2022-07-07] MEDS: citric acid-sodium citrate 30 mL UDC PO (06:28)
[2022-07-07] MEDS: famotidine 20 mg/2 mL INJ IVP (06:28)
[2022-07-07] MEDS: ceFAZolin 2,000 MG in sodium chloride 0.9% (plus) 50 ML 100 MG IV (06:35)
--- NOTE | 2022-07-07 06:43 | P.HP_ITS ---
Providers/Chief Complaint Admitting Physician: Rolando White MD Primary Care Provider: Rolando White MD Chief Complaint: SCHEDULED SECTION HPI RENAL DIALYSIS TECHNICIAN History of Present Illness Sara Vidal is a 32 year old female 2 para 2-0-0-2 with history of twin delivery at 39 weeks estimated gestational age who presents for a repeat section. Her has been remarkable for having inconsistent care. Despite multiple efforts to contact the patient, she is only come to handful of appointments. Present Details : 4 Para: 1 Review of Systems General: Reports: 10 or more systems reviewed and unremarkable except in HPI and below Const: Reports: fatigue; Denies: fever(s) Eyes: Denies: change in vision Card: Denies: chest pain Musc: Reports: back pain Juan Manuel/Lymph: Denies: easy bruising Medications/Allergies Home Medications Medication Instructions Recorded Confirmed Last Taken Type 19 1 tab PO DIRECTED 02/17/21 07/07/22 02/17/21 History ferrous sulfate 325 mg (65 mg 325 mg PO DIRECTED 02/17/21 07/07/22 02/16/21 History iron) tablet (iron) Allergies Allergy/AdvReac Type Severity Reaction Status Date / Time peanut Allergy ALGY-Anaphy Verified 02/17/21 02:40 laxis Penicillins Allergy ALGY-Rash Verified 02/17/21 02:40 Vitals/I&O/Wt Last Vital Signs Pulse 105 H 07/07/22 06:21 BP 125/73 07/07/22 06:21 O2 Del Method 07/07/22 05:10 Weight last 48 hrs Weight 198 lb Physical Exam Const: COMMON NORMALS: patient oriented x3 and alert HENMT: COMMON NORMALS: moist oral mucous membranes HEAD & SCALP: normal to inspection Chest: COMMONS NORMALS: normal inspection of the chest Resp: COMMON NORMALS: clear to auscultation bilaterally AUSCULTATION: clear to auscultation bilaterally Cardio: COMMON NORMALS: regular rate and regular rhythm RATE: regular rate RHYTHM: regular rhythm GI: INSPECTION: Yes normal to inspection and Yes other (Gravid) Extremity: COMMON NORMALS: normal to inspection GENERAL: Yes edema (Trace) Neuro: COMMON NORMALS: patient oriented x3, moves all extremities and no sensory deficits noted SENSORIUM/ORIENTATION: Yes alert Psych: COMMON NORMALS: mental status grossly normal Skin: COMMON NORMALS: no rashes or lesions noted GENERAL SKIN EXAM: no rashes or lesions noted Data 07/07/22 05:50 A&P Assessment and plan (1) 39 weeks gestation of : (2) History of : We plan to proceed with a repeat section. We saw the patient yesterday in our office and discussed the risk of bleeding, infection, damage intra- abdominal organs. (3) Anemia affecting in third trimester: Hemoglobin is 8.2. We will place 2 IVs in the patient. She currently has a 20- gauge IV, and we will place an 18-gauge in her other arm. I am going to type and screen blood. If she starts having excessive bleeding, will have a quicker trigger to infuse blood. Attestations Medical Necessity Statement*: I anticipate routine and post C- section care. Coding Level of Care Code Acute Wood Finisher for Chg Fwd Diagnoses 39 weeks gestation of Z3A.39 History of Z98.891 Anemia affecting in third trimester O99.013
--- NOTE | 2022-07-07 08:33 | PM.OP ---
Operative Report Date of procedure: July 07, 2022 Pre-op diagnosis: 39-week EGA female with a history of a desiring repeat. Post-op diagnosis: Status post section Procedure done: Repeat lower transverse section Specimens removed/disposition: Female with a weight of 6 pounds 9 ounces and Apgars of 9 and 9 Placenta with a three-vessel cord delivered intact Surgeon: Rolando White Estimated blood loss (mL): 600 Complications: None Procedure: The patient was brought back to the operating room where she was prepped and draped in usual sterile fashion. Anesthesia was found to be adequate. A lower transverse skin incision was then made with a #10 blade. I then excised the hypertrophic scar corresponding with the previous scar. I then dissected down to the underlying subcutaneous tissue until arriving at the prerectal fascia. The fascia was then nicked with the scalpel bilaterally. The fascial incisions were then carried laterally with Monk scissors. Attention was then turned to the superior aspect of the incision which was grasped with kochers and tented up away from the underlying rectus abdominis muscles. The muscles were then dissected away from the fascia manually, and later with Monk scissors. Attention was then turned to the inferior aspect of the incision, and the fascia was dissected away from the underlying muscle in similar fashion. The rectus abdominis muscles were then spread manually. The peritoneum was entered manually. Excellent visualization of the uterus was noted. A lower transverse uterine incision was then made with a #10 blade. Upon arriving at the intrauterine cavity, the uterine incision was then extended manually. The infant was noted to be in vertex position. The baby was delivered without difficulty. After delivery of the head, the mouth and nose were suctioned at the site of the incision. There was no meconium. There was a nuchal cord x1.. The baby was then completely delivered and placed on the abdomen. The cord was cut and clamped. The baby was then handed to the waiting nurse. The placenta was removed intact. The uterus was noted to have some significant adhesions, and I made the decision not to excise and the adhesions and left the uterus and the abdomen while repairing the incision. The intrauterine cavity was cleansed of any remaining debris. The uterine incision was reapproximated in 2 layers. The first layer was performed with 0 Vicryl in a running locked stitch. The second layer was an imbricating stitch also using 0 Vicryl. I then placed 2 [id number] stitches to maintain excellent hemostasis. The peritoneum was then irrigated with warm saline. I reexamined the uterine incision and found it to be hemostatic. The rectus abdominis muscles were then reapproximated using 0 Vicryl in a running stitch. The fascia was then reapproximated using 0 Vicryl in running stitch. The subcutaneous tissue was reapproximated using 0 Vicryl in a running stitch. The skin was reapproximated 4-0 Vicryl in a running subcuticular stitch. A sterile dressing was placed. All counts were correct x2. Both the mother and baby were in stable condition.
--- NOTE | 2022-07-07 11:36 | ANE.PACU2 ---
Inpatient post-anesthesia follow up: Airway intact: Yes Vital signs: Temperature 96.8 F Pulse Rate 84 Respiratory Rate Blood Pressure 114/55 Pulse Oximetry 100 Oxygen Delivery Me thod Room Air Oxygen Flow Rate Fraction of Inspir ed Oxygen Hydration adequate: Yes Nausea and vomiting: No Pain level: 1 Mental status: Baseline
[2022-07-07 14:08] LABS: Hematocrit 29.3 % (37.0-47.0); Hemoglobin 8.3 g/dL (11.5-15.3); Mean Corpuscular HGB Conc 28.3 g/dL (30.0-36.0); Mean Corpuscular Hemoglobin 19.1 pg (28.0-34.0); Mean Corpuscular Volume 67.4 fl (81-99); Mean Platelet Volume 10.6 fL (7.4-10.4); Platelet Count 308 10^3/cmm (130-400); Red Blood Count 4.35 10^6/uL (4.1-5.3); Red Cell Distribution Width 18.6 % (12.1-15.1); White Blood Count 13.1 10^3/uL (4.0-10.0)
[2022-07-07] MEDS: ketorolac 30 mg/mL INJ IVP ×2 (14:11→21:12)
[2022-07-07] MEDS: dextrose 5%-lactated ringers 1,000 ML 125 ML IV (16:12)
[2022-07-07] MEDS: ferrous sulfate EC 325 mg Tablet PO (18:46)
[2022-07-07] MEDS: docusate sodium 100 mg Capsule PO (18:46)
[2022-07-08] MEDS: dextrose 5%-lactated ringers 1,000 ML 125 ML IV (00:02)
[2022-07-08] MEDS: ketorolac 30 mg/mL INJ IVP (02:57)
[2022-07-08 03:01] VITALS: TEMP 36.6
[2022-07-08 03:02] VITALS: BP 112/65; PULSE 90
[2022-07-08 05:30] LABS: Hematocrit 25.4 % (37.0-47.0); Hemoglobin 7.2 g/dL (11.5-15.3); Mean Corpuscular HGB Conc 28.3 g/dL (30.0-36.0); Mean Corpuscular Hemoglobin 18.8 pg (28.0-34.0); Mean Corpuscular Volume 66.5 fl (81-99); Mean Platelet Volume 9.9 fL (7.4-10.4); Platelet Count 288 10^3/cmm (130-400); Red Blood Count 3.82 10^6/uL (4.1-5.3); Red Cell Distribution Width 18.4 % (12.1-15.1); White Blood Count 8.7 10^3/uL (4.0-10.0)
[2022-07-08] MEDS: ferrous sulfate EC 325 mg Tablet PO ×2 (10:07→18:46)
[2022-07-08] MEDS: prenatal vitamin Capsule 1 CAP PO (10:07)
[2022-07-08] MEDS: docusate sodium 100 mg Capsule PO ×2 (10:07→18:46)
[2022-07-08 10:24] VITALS: BP 128/65; PULSE 111; TEMP 36.9
--- NOTE | 2022-07-08 11:44 | PM.OBGYPN ---
COMMUNICATION EQUIPMENT MECHANIC Subjective Subjective: Interval history: The patient is doing well. Bleeding has been within normal limits. Pain is well controlled. There have been no concerns. Labor: Contraction Pattern: Rare Vitals/I&O/Wt Last Vital Signs Temp 98.4 F 07/08/22 10:24 Pulse 111 H 07/08/22 10:24 Resp 18 07/07/22 21:51 BP 128/65 07/08/22 10:24 Pulse Ox 99 07/07/22 16:21 O2 Del Method 07/07/22 16:15 07/07/22 07/08/22 07/08/22 22:59 06:59 14:59 Intake Total 979.167 / 2079.167 Output Total 400 / 1400 400 / 1800 275 / 275 Balance -400 / -300 579.167 / 279.167 -275 / -275 Weight last 48 hrs Weight 198 lb Physical Exam Narrative: She is in no acute distress Lungs are clear auscultation bilaterally Her heart has a regular rate and rhythm Her fundus is below the umbilicus and firm Her dressing is clean, dry and intact Her extremities have trace edema. Urinary Catheter Management: Mensah: Cath Placed During This Visit: yes, but has since been removed by the nurse Reason for Continuing Indwelling Catheter: Decision to DC Catheter Urinary Catheter Date of Insertion: 07/07/22 Urinary Catheter Time of Insertion: 07:05 Date Urinary Catheter Removed: 07/08/22 Time Urinary Catheter Discontinued: 08:20 Data 07/08/22 05:20 A&P Assessment and plan (1) Anemia affecting in third trimester: I anticipate routine post care. Her Mensah and her IVs have been DC'd. I anticipate she will go home tomorrow. (2) 39 weeks gestation of : Attestations Medical Necessity Statement*: I anticipate she will be discharged home tomorrow if she continues to do well. Coding Level of Care Code Acute Beadworker for Elvis Fwismael Diagnoses Anemia affecting in third trimester O99.013 39 weeks gestation of Z3A.39
[2022-07-08] MEDS: ibuprofen 800 mg tablet PO ×2 (15:03→21:14)
[2022-07-08 16:19] VITALS: PULSE 101; O2SAT 99
[2022-07-08 16:20] VITALS: BP 114/59; PULSE 102; TEMP 36.8
[2022-07-08] MEDS: acetaminophen 325 mg Tablet 650 MG PO (16:27)
[2022-07-08 22:00] VITALS: BP 115/59; PULSE 94; RESP 18; TEMP 36.4
[2022-07-09 04:10] VITALS: TEMP 36.3
[2022-07-09 04:11] VITALS: BP 115/58; PULSE 96
[2022-07-09] MEDS: acetaminophen 325 mg Tablet 650 MG PO (05:32)
[2022-07-09] MEDS: docusate sodium 100 mg Capsule PO (09:09)
[2022-07-09] MEDS: prenatal vitamin Capsule 1 CAP PO (09:09)
[2022-07-09] MEDS: ibuprofen 800 mg tablet PO (09:09)
[2022-07-09] MEDS: ferrous sulfate EC 325 mg Tablet PO (09:09)
--- NOTE | 2022-07-09 09:15 | P.DS_ITS ---
Discharge Providers PANEL INSTRUMENT REPAIRER Date of Admission: 07/07/22 05:05 Date of Discharge: 07/09/22 Attending Provider at Admission: Rolando White MD Attending Provider at Discharge: Rolando White MD Primary Care Provider: Rolando White MD Diagnoses at Discharge Discharge Diagnosis (1) Anemia affecting in third trimester: Status: Acute (2) 39 weeks gestation of : Status: Acute Reason for Visit Reason for Visit: SCHEDULED SECTION Hospital Course Hospital Course The patient presented to the hospital for a repeat section at 39 weeks estimated gestational age. Her was unremarkable. Her course was also unremarkable. Her bleeding was within normal limits. Her pain was well controlled. She presented with anemia with a hemoglobin of 8.1. The following day, her hemoglobin had dropped to 7.2. She had no symptoms of anemia or hypovolemia during her hospital stay. Information Peripartum Data: Infant Delivery Method: Physical Exam Narrative: She is in no acute distress Lungs are clear auscultation bilaterally Her heart has a regular rate and rhythm Her fundus is below the umbilicus and firm Her dressing is clean, dry and intact Her extremities have trace edema Urinary Catheter Management: Mensah: Cath Placed During This Visit: yes, but has since been removed by the nurse Reason for Continuing Indwelling Catheter: Decision to DC Catheter Urinary Catheter Date of Insertion: 07/07/22 Urinary Catheter Time of Insertion: 07:05 Date Urinary Catheter Removed: 07/08/22 Time Urinary Catheter Discontinued: 08:20 Discharge Data Studies Completed and Pending Laboratory Results WBC 8.7 10^3/uL (4.0-10.0) 07/08/22 05:20 RBC 3.82 10^6/uL (4.1-5.3) L 07/08/22 05:20 Hgb 7.2 g/dL (11.5-15.3) L 07/08/22 05:20 Hct 25.4 % (37.0-47.0) L 07/08/22 05:20 MCV 66.5 fl (81-99) L 07/08/22 05:20 MCH 18.8 pg (28.0-34.0) L 07/08/22 05:20 MCHC 28.3 g/dL (30.0-36.0) L 07/08/22 05:20 RDW 18.4 % (12.1-15.1) H 07/08/22 05:20 Plt Count 288 10^3/cmm (130-400) 07/08/22 05:20 MPV 9.9 fL (7.4-10.4) 07/08/22 05:20 Neut % (Auto) 62.7 % 07/07/22 05:50 Lymph % (Auto) 26.7 % 07/07/22 05:50 Woodruff % (Auto) 8.2 % 07/07/22 05:50 Eos % (Auto) 1.2 % 07/07/22 05:50 Baso % (Auto) 0.5 % 07/07/22 05:50 Neut # (Auto) 4.74 10^3/uL (1.8-7.7) 07/07/22 05:50 Lymph # (Auto) 2.0 10^3/uL (0.8-4.8) 07/07/22 05:50 Woodruff # (Auto) 0.6 10^3/uL (0.2-0.9) 07/07/22 05:50 Eos # (Auto) 0.1 10^3/uL (0.0-0.8) 07/07/22 05:50 Baso # (Auto) 0.0 10^3/uL (0.0-0.1) 07/07/22 05:50 Nucleated RBC % (auto) 0 % 07/07/22 05:50 Nucleated RBCs # 0.0 /100WBC 07/07/22 05:50 Blood Type B Positive 07/07/22 05:50 Rho(D) Type Positive 07/07/22 05:50 Antibody Screen Negative 07/07/22 05:50 Vitals Last Vital Signs Temp 97.3 F L 07/09/22 04:10 Pulse 96 07/09/22 04:11 Resp 18 07/08/22 22:00 BP 115/58 07/09/22 04:11 Pulse Ox 99 07/08/22 16:19 O2 Del Method 07/07/22 16:15 Discharge Plan Discharge Patient Disposition: Home Condition: Stable Prescriptions: New ibuprofen 800 mg Tablet 800 mg PO TID Qty: 45 0RF hydrocodone-acetaminophen 5-325 mg Tablet 1 tab PO Q6H PRN (Reason: Moderate To Severe Pain) Qty: 20 0RF docusate sodium 100 mg Capsule 100 mg PO BID Qty: 10 0RF Continued ferrous sulfate [iron] 325 mg (65 mg iron) tablet 325 mg PO DIRECTED 19 tablet 1 tab PO DIRECTED Discharge Orders: Discharge Order (Routine); Ordered 07/09/22 Ordered By: Rolando White Referrals: Rolando White MD [Primary Care Provider] - 7-10 days (Needs to have cbc done at [facility] in 8-9 days) Discharge Diet: Usual diet Discharge Activity: Limit activity as instructed Patient Instructions: Depression (DC), Bleeding (DC), Preeclampsia and Eclampsia After Delivery (GEN), Hemorrhage (DC), OB - Christopher/Josh, OB Discharge Report, OB Food/Drug Interaction Guide, OB Care at Home, Opioid Safety, OB Home Care Discharge Attestations PANEL INSTRUMENT REPAIRER Time Spent in Discharge Care*: less than 30 min Coding Level of Care Code Acute Garage Attendant for Chg Fwd Diagnoses Anemia affecting in third trimester O99.013 39 weeks gestation of Z3A.39
[2022-07-09 14:49] VITALS: BP 122/80; PULSE 96
== END 2022-07-09 11:45 | disposition home or self-care (01) | DRG 788 ==
PROVIDERS: Admitting Provider Family Medicine; PCP Family Medicine; Visit Provider Family Medicine
PROC: 10D00Z1 Extraction of Products of Conception, Low, Open Approach (ICD-10-PCS; CPT 59514; principal; 2022-07-07 07:00)
DX: O34.211 Maternal care for low transverse scar from previous cesarean delivery (principal); O99.02 Anemia complicating childbirth; D64.9 Anemia, unspecified; O69.81X0 Labor and delivery complicated by cord around neck, without compression, not applicable or unspecified; Z87.59 Personal history of other complications of pregnancy, childbirth and the puerperium; Z3A.39 39 weeks gestation of pregnancy; Z37.0 Single live birth
CPT/HCPCS: 12345; 36415; 51702; 59025; 59409; 85025; 85027; 86850; 86900; 96374; 96376; J0690; J1885; J2274; J2370; J2590; J2765; J3010; J3490; J7120; J7121